=== PATIENT | female | born 1980 | race Caucasian/White ===

== ENCOUNTER 2016-05-29 05:04 | Emergency (ER) | payer BC, OTHER ==
[2016-05-29] MEDS ORDERED: NS 0.9% 1000 ML* 1,000 ML IV ONE (05:33)
[2016-05-29] MEDS ORDERED: Ondansetron INJ* 2 MG/ML VIAL IV ONE (05:33)
[2016-05-29] MEDS ORDERED: HYDROmorphone INJ* 1 MG/ML CARPUJECT SYRINGE IV ONE (05:33)
[2016-05-29 05:46] LABS: Hematocrit 48 % (35-47); Hemoglobin 15.8 g/dl (12.0-16.0); Mean Corpuscular HGB Conc 33 g/dl (31-36); Mean Corpuscular Hemoglobin 30 pg (27-31); Mean Corpuscular Volume 89 fL (80-97); Mean Platelet Volume 9 um3 (7.4-10.4); Red Blood Count 5.33 10^6/ul (4.0-5.4); Red Cell Distribution Width 14 % (10.5-15); White Blood Count 12.4 10^3/ul (3.5-10.8)
[2016-05-29 06:05] LABS: ALT 24 U/L (7-52); Albumin 4.3 g/dL (3.2-5.2); Alkaline Phosphatase 68 U/L (34-104); BUN/Creatinine Ratio 25.3 (8-20); Blood Urea Nitrogen 22 mg/dL (6-24); CO2 Carbon Dioxide 22 mmol/L (22-32); Chloride 105 mmol/L (101-111); EGFR African American 94.2 (>60); EGFR Non-African American 73.3 (>60); Globulin 2.6 g/dL (2-4); Glucose 116 mg/dL (70-100); Sodium 134 mmol/L (133-145); Total Protein 6.9 g/dL (6.4-8.9)
[2016-05-29 06:09] LABS: AST 23 U/L (13-39); Anion Gap 7 mmol/L (2-11); Potassium 4.7 mmol/L (3.5-5.0)
[2016-05-29] MEDS ORDERED: LORazepam INJ* 2 MG/ML 1 ML VIAL IV PUSH ONE (06:16)
--- NOTE | 2016-05-29 06:19 | ED ---
Dante Pearson Anna, scribed for Mary Lopez MD on 05/29/16 at 0536 . Abdominal Pain/Female - HPI Summary HPI Summary: Patient is a 35 y/o female coming to [facility] presenting with sudden onset of constant abdominal pain that began at 1:00 this morning. She describes the severity of the pain as 9/10. The pain is exacerbated by standing up straight. She saw large blood clots this morning. She reports a hx of painful menses and started her period last night. She took ibuprofen at 1:30 which has not alleviated the symptoms. Denies fever, chills. She reports that she has had pain with her period for the last six months. A0. - History of Current Complaint Chief Complaint: EDAbdPain Stated Complaint: ABD PAIN/BLEEDING Hx Obtained From: Patient Hx Last Menstrual Period: 05/28/16 Onset/Duration: Sudden Onset, Lasting Hours, Still Present Timing: Constant Severity Initially: Moderate Severity Currently: Moderate Pain Intensity: 9 Pain Scale Used: 0-10 Numeric Location: Suprapubic Radiates: No Aggravating Factor(s): Other: - Standing Allergies/Adverse Reactions: Allergies Allergy/AdvReac Type Severity Reaction Status Date / Time Ceftriaxone [From Rocephin] Allergy Anaphylatic Verified 05/29/16 05:43 Shock Ketoprofen Allergy Anaphylatic Verified 05/29/16 05:43 Shock BEES Allergy Severe Anaphylatic Uncoded 05/29/16 05:43 Shock red dye Allergy Severe Anaphylatic Uncoded 05/29/16 05:43 Shock PMH/Surg Hx/FS Hx/Imm Hx Endocrine/Hematology History: Denies: Hx Diabetes, Hx Thyroid Disease Cardiovascular History: Denies: Hx Congestive Heart Failure, Hx Hypertension Respiratory History: Denies: Hx Asthma, Hx Chronic Obstructive Pulmonary Disease (COPD) GI History: Denies: Hx Ulcer - Surgical History Surgery Procedure, Year, and Place: appendix; tubal ligation; tonsils Infectious Disease History: No Infectious Disease History: Denies: Hx Hepatitis, Hx Human Immunodeficiency Virus (HIV), History Other Infectious Disease, Traveled Outside the [place] in Last 30 Days - Family History Known Family History: Positive: Other - Hx hemorrhage mother; Hx hysterectomy for medical reasons mother - Social History Occupation: Employed Full-time Lives: With Family Alcohol Use: Rare Substance Use Type: Reports: None Smoking Status (MU): Light Every Day Tobacco Smoker Type: Cigarettes Amount Used/How Often: 1 pack per week Review of Systems Negative: Fever, Chills Eyes: Negative ENT: Negative Positive: Other - blood clots Respiratory: Negative Positive: Abdominal Pain Genitourinary: Negative Musculoskeletal: Negative Skin: Negative Neurological: Negative Psychological: Normal All Other Systems Reviewed And Are Negative: Yes Physical Exam Triage Information Reviewed: Yes Vital Signs On Initial Exam: Initial Vitals Temp Pulse Resp BP Pulse Ox 98.4 F 94 22 149/99 99 05/29/16 05:13 05/29/16 05:13 05/29/16 05:13 05/29/16 05:13 05/29/16 05:13 Vital Signs Reviewed: Yes Appearance: Positive: Well-Appearing, No Pain Distress Skin: Positive: Warm, Skin Color Reflects Adequate Perfusion, Dry Eyes: Positive: EOMI, GHULAM ENT: Positive: Pharynx normal, TMs normal Neck: Positive: Supple, Nontender Respiratory/Lung Sounds: Positive: Clear to Auscultation, Breath Sounds Present. Negative: Rales, Rhonchi, Wheezes Cardiovascular: Positive: RRR, Other - no gallops. Negative: Murmur, Rub Abdomen Description: Positive: Soft, Other: - suprapubic tenderness, no rebound. Negative: Distended, Guarding Bowel Sounds: Positive: Present Pelvic Exam: Positive: external exam normal, active bleeding, blood, tender adnexa, tender uterus - mild to mod amount of bleeding with left adnexal and suprapubic tenderenss Musculoskeletal: Positive: Strength/ROM Intact. Negative: Edema Left, Edema Right Neurological: Positive: Sensory/Motor Intact, Alert, Oriented to Person Place, Time, CN Intact II-III - II-XII Psychiatric: Positive: Affect/Mood Appropriate Diagnostics - Vital Signs Vital Signs Temp Pulse Resp BP Pulse Ox 05/29/16 05:13 98.4 F 94 22 149/99 99 - Laboratory Lab Results: Lab Results 05/29/16 05/29/16 05/29/16 Range/Units 05:27 05:27 05:27 WBC 12.4 H (3.5-10.8) 10^3/ul RBC 5.33 (4.0-5.4) 10^6/ul Hgb 15.8 (12.0-16.0) g/dl Hct 48 H (35-47) % MCV 89 (80-97) fL MCH 30 (27-31) pg MCHC 33 (31-36) g/dl RDW 14 (10.5-15) % Plt Count 258 (150-450) 10^3/ul MPV 9 (7.4-10.4) um3 Neut % (Auto) 71.5 (38-83) % Lymph % (Auto) 17.4 L (25-47) % [place] % (Auto) 6.0 (1-9) % Eos % (Auto) 3.6 (0-6) % Baso % (Auto) 1.5 (0-2) % Absolute Neuts (auto) 8.9 H (1.5-7.7) 10^3/ul Absolute Lymphs (auto) 2.1 (1.0-4.8) 10^3/ul Absolute Monos (auto) 0.7 (0-0.8) 10^3/ul Absolute Eos (auto) 0.4 (0-0.6) 10^3/ul Absolute Basos (auto) 0.2 (0-0.2) 10^3/ul Absolute Nucleated RBC 0.01 10^3/ul Nucleated RBC % 0 APTT 30.2 (26.0-36.3) seconds Sodium 134 (133-145) mmol/L Potassium 4.7 (3.5-5.0) mmol/L Chloride 105 (101-111) mmol/L Carbon Dioxide 22 (22-32) mmol/L Anion Gap 7 (2-11) mmol/L BUN 22 (6-24) mg/dL Creatinine 0.87 (0.51-0.95) mg/dL Est GFR ( Amer) 94.2 (>60) Est GFR (Non-Af Amer) 73.3 (>60) BUN/Creatinine Ratio 25.3 H (8-20) Glucose 116 H (70-100) mg/dL Calcium 9.0 (8.6-10.3) mg/dL Total Bilirubin 0.40 (0.2-1.0) mg/dL AST 23 (13-39) U/L ALT 24 (7-52) U/L Alkaline Phosphatase 68 (34-104) U/L Total Protein 6.9 (6.4-8.9) g/dL Albumin 4.3 (3.2-5.2) g/dL Globulin 2.6 (2-4) g/dL Albumin/Globulin Ratio 1.7 (1-3) Beta HCG, Quant < 0.60 mIU/mL Result Diagrams: 05/29/16 05:27 05/29/16 05:27 Lab Statement: Any lab studies that have been ordered have been reviewed, and results considered in the medical decision making process. Abdominal Pain Fem Course/Dx - Course Course Of Treatment: 35 yo female with painful periods over the last few months awakened at 1am with pain after period started on saturday. labs are essentially normal, pelvic exam benign except for mild bleeding. Pt will be signed out to Dr. Churchill while awaiting her pelvic ultrasound this am. - Diagnoses Provider Diagnoses: Vaginal bleeding Discharge - Discharge Plan Condition: Stable Disposition: OTHER Discharge Disposition Comment: dr. Churchill will be adding the disposition The documentation as recorded by the Dante valverde Anna accurately reflects the service I personally performed and the decisions made by , Mary Lopez MD.
[2016-05-29 07:47] LABS: Urine Bacteria 1+ (Absent); Urine Bilirubin Negative (Negative); Urine Glucose Negative (Negative); Urine Nitrite Negative (Negative)
--- NOTE | 2016-05-29 08:27 | RAD ---
Indication: Vaginal bleeding. Real-time sonography of the pelvis was performed with transabdominal technique. The uterus is enlarged measuring 11.0 x 5.9 x 2.3 cm with a large fibroid in the anterior body measuring 6.8 x 6.7 x 6.7 cm. Endometrial echo measures 8 mm. The right ovary measures 3.7 x 1.5 x 2.6 cm. The left ovary measures 3.6 x 2.8 x 2.7 cm. Doppler interrogation demonstrates flow in both ovaries. IMPRESSION: Large fibroid in the anterior body of the uterus measures 6.8 x 6.7 x 6.7 cm. Endometrial echoes appear normal.
[2016-05-29] MEDS ORDERED: oxyCODONE/Acetamin 5/325 MG* TAB PO ONE (10:08)
[2016-05-29] MEDS ORDERED: Sulfamethox/Trimethoprim DS 800/160* TAB PO ONE (10:10)
[2016-05-29 11:13] VITALS: BP 120/72
--- NOTE | 2016-05-29 15:25 | ED ---
Progress - Progress Note Progress Note: Signed out to me by Dr. Lopez @ 0700. Re-eval 30 minutes prior to DC, still in pain ,tolerating PO. No urinary sx. Fam hx/personal hx of dysmenorrhea Do not suspect acute surgical abdomen Plan for cover with abx 2 days until cultures back, analgesics Course/Dx - Course Course Of Treatment: 35 yo female with painful periods over the last few months awakened at 1am with pain after period started on saturday. labs are essentially normal, pelvic exam benign except for mild bleeding. Pt will be signed out to Dr. Churchill while awaiting her pelvic ultrasound this am. - Diagnoses Provider Diagnoses: Vaginal bleeding
== END 2016-05-29 11:14 | disposition home or self-care (01) ==
LOC: ED 05:04
DX: N93.9 Abnormal uterine and vaginal bleeding, unspecified (principal); F17.210 Nicotine dependence, cigarettes, uncomplicated; D25.9 Leiomyoma of uterus, unspecified
CPT/HCPCS: 36415; 76856; 80053; 81003; 81015; 84702; 85025; 85730; 87086; 96360; 96365; 96374; 99283; A9270-GY; J1170; J2060; J2405

== ENCOUNTER 2016-06-14 10:29 | Observation (INO) | payer BC ==
[~2016-06-14 10:29] MED LIST: Buffered Lidocaine 1% SYR 3ML* 3 ML/SYR SYRINGE INTRADERM ONE; Famotidine IV* 10 MG/ML 2 ML (20 mg) IV ONE; Gentamicin ADULT (*) 300 MG in NS 0.9% 100 ML* 100 ML IVPB ONE; Morphine INJ* 2 MG/ML 1 ML CARPUJECT IV PRN; PROCHLORPERAZINE INJ 5 MG/ML 2 ML VIAL IV PRN; Scopolamine PATCH Remove* 1 NOTE MISC PATCH OFF SCH; oxyCODONE/Acetamin 5/325 MG* TAB PO PRN
[2016-06-14] MEDS ORDERED: Scopolamine 1.5 mg* PATCH ONE (10:42)
[2016-06-14] MEDS ORDERED: Famotidine IV* 10 MG/ML 2 ML (20 mg) ONE (10:42)
[2016-06-14] MEDS ORDERED: Buffered Lidocaine 1% SYR 3ML* 3 ML/SYR SYRINGE ONE (10:42)
[2016-06-14] MEDS ORDERED: Clindamycin 900 MG IVPREMIX(* 900 MG/50 ML SDV IV ONE (10:42)
[2016-06-14] MEDS ORDERED: Scopolamine 1.5 mg* PATCH TRANSDERM SCH (11:00)
[2016-06-14] MEDS ORDERED: fentaNYL* 50 MCG/ML 5 ML VIAL (250 MCG VIAL) ONE (11:05)
[2016-06-14] MEDS ORDERED: KETAMINE HCL* 50 MG/ML 10 ML VIAL ONE (11:05)
[2016-06-14] MEDS ORDERED: Midazolam* 1 MG/ML 5 ML VIAL (5 MG) ONE (11:05)
[2016-06-14] MEDS ORDERED: Bupivacaine 0.5% W/EPI SDV* 30 ML VIAL ONE (12:09)
[2016-06-14] MEDS ORDERED: Glycopyrrolate IV* 0.2 MG/ML 1 ML VIAL ONE (13:03)
[2016-06-14] MEDS ORDERED: Ondansetron INJ* 2 MG/ML VIAL ONE (13:03)
[2016-06-14] MEDS ORDERED: Propofol* 10 MG/ML 20 ML BTL IV PUSH ONE ×2 (13:03→15:29)
[2016-06-14] MEDS ORDERED: PROCHLORPERAZINE INJ 5 MG/ML 2 ML VIAL ONE (13:03)
[2016-06-14] MEDS ORDERED: Dexamethasone IV* 4 MG/ML 1 ML (4 MG) ONE (13:03)
[2016-06-14] MEDS ORDERED: Ketorolac INJ* 30 MG/ML 1 ML VIAL ONE (13:03)
[2016-06-14] MEDS ORDERED: Neostigmine Methylsulfate* 2 MG/2 ML SYRINGE ONE (13:03)
[2016-06-14] MEDS ORDERED: Lidocaine 2% PF* 10 ML AMP ONE (13:04)
[2016-06-14] MEDS ORDERED: Morphine INJ* 10 MG/ML 1 ML CARPUJECT ONE (13:26)
[2016-06-14] MEDS ORDERED: fentaNYL* 50 MCG/ML 2 ML VIAL (100 MCG VIAL) ONE ×2 (16:00→16:26)
[2016-06-14] MEDS ORDERED: oxyCODONE/Acetamin 5/325 MG* TAB PO PRN (16:01)
[2016-06-14] MEDS: fentaNYL* 50 MCG/ML 2 ML VIAL (100 MCG VIAL) IV PRN ×8 (16:01→16:53)
[2016-06-14] MEDS ORDERED: Morphine PCA ADULT* 5 MG/ML 30 ML ONE (16:35)
[2016-06-14] MEDS ORDERED: Metoclopramide IV* 5 MG/ML 2 ML VIAL IV PRN (18:16)
[2016-06-14] MEDS ORDERED: Naloxone* 0.4 MG/ML 1 ML VIAL IV PUSH PRN (18:16)
[2016-06-14] MEDS ORDERED: Ibuprofen TAB* 600 MG PO PRN (18:20)
[2016-06-14] MEDS ORDERED: Morphine PCA* 150 MG in PREMIX PCA SCH (19:00)
[2016-06-15] MEDS: oxyCODONE/Acetamin 5/325 MG* TAB PO PRN ×2 (05:20→09:37)
[2016-06-15 07:04] LABS: Hematocrit 37 % (35-47); Hemoglobin 12.1 g/dl (12.0-16.0); Mean Corpuscular HGB Conc 33 g/dl (31-36); Mean Corpuscular Hemoglobin 29 pg (27-31); Mean Corpuscular Volume 89 fL (80-97); Mean Platelet Volume 8 um3 (7.4-10.4); Red Blood Count 4.19 10^6/ul (4.0-5.4); Red Cell Distribution Width 14 % (10.5-15); White Blood Count 21.6 10^3/ul (3.5-10.8)
[2016-06-15 07:09] LABS: Add Diff/Slide Review? Slide Review Added; Comments Flag Yes
[2016-06-15] MEDS ORDERED: Naloxone* 0.4 MG/ML 1 ML VIAL IV PUSH PRN (07:46)
[2016-06-15] MEDS ORDERED: NS 0.9% 1000 ML* 1,000 ML IVPB SCH (07:46)
[2016-06-15 07:57] VITALS: BP 95/67
[2016-06-15] MEDS ORDERED: Morphine PCA* 150 MG in PREMIX PCA SCH (08:00)
--- NOTE | 2016-06-15 22:32 | OP ---
DATE OF OPERATION: 06/14/16 - ROOM #340 DATE OF : 76 SURGEON: Agustín Lemons MD CNS: Dr. Perez. ANESTHESIOLOGIST: Dillon Lofton MD ANESTHESIA: General PRE-OP DIAGNOSES: Intramural fibroid, enlarged uterus, severe dysmenorrhea, and pelvic pain and pressure. POST-OP DIAGNOSES: Intramural fibroid, enlarged uterus, severe dysmenorrhea, and pelvic pain and pressure. OPERATIVE PROCEDURE: Laparoscopic supracervical hysterectomy. ESTIMATED BLOOD LOSS: Less than 100 cc. URINE OUTPUT: About 300 cc of clear urine. FLUIDS: She received 3 L of IV crystalloid fluid. SPECIMEN SENT TO PATHOLOGY: Uterus which was marcellated and fibroid. FINDINGS: Laparoscopically, the patient was noted to have an enlarged uterus with an enlarged single intramural myoma. The fallopian tubes bilaterally and ovaries bilaterally were within normal limits. There was a normal bowel, normal bladder. There were no complications during this procedure. DESCRIPTION OF PROCEDURE: The patient was taken to the operating room where she was identified. She was placed on the operating table where a general anesthetic with endotracheal intubation was obtained without difficulty. She was then placed in the dorsal lithotomy position, prepped and draped in the normal sterile fashion. Attention was then brought on to the patient's perineum where the bladder was catheterized with a Raza catheter and Raza catheter was left into place. A side- view speculum was then inserted into the patient's vagina. The cervix was identified, grasped with a single tooth tenaculum. The uterus was then sounded to about 12 cm in anteverted position after which a [place] uterine manipulator was introduced through the cervix. The balloon and the uterine manipulator was then inflated with 4 cc of normal saline. The single tooth tenaculum was then removed as well as side view speculum. Attention was then brought on the patient's abdomen where a 1 cm infraumbilical skin incision was made with a knife, carried through to the under-lying layer of fascia. The fascia was then grasped with Nona clamps, brought up to the incision, incised with a knife. Entry through the peritoneum and abdominal cavity was then confirmed using a Brittany clamp. The Nona clamps were then replaced with 0 Polysorb sutures. Through this incision, a 10 mm blunt trocar was introduced. The balloon and the trocar were then inflated with 20 cc of air. The trocar was then attached with 0 Polysorb sutures. The patient's abdomen was then insufflated with CO2 gas. A 10 mm scope was introduced through this trocar and the patient was then placed in a slight Trendelenburg position. Two additional trocars were introduced at the right and left upper quadrant of the patient's abdomen under direct visualization and another trocar was introduced 4 cm above the symphysis pubis and in midline. A survey of the patient's anatomy laparoscopically revealed findings as noted above. At this point, we then proceeded with hysterectomy. The round ligaments were then grasped bilaterally. They were grasped with a LigaSure, coagulated, and transected. A window was then made in the anterior leaf of the broad ligament. This was transected with LigaSure with a combination of fulguration and sharp dissection and the bladder was then mobilized away from the lower uterine segment. The utero-ovarian ligament was grasped bilaterally with LigaSure, fulgurated, and transected. The same was done with the fallopian tube, was grasped with LigaSure, fulgurated, and transected. The posterior leaf of the broad ligament was then dissected bluntly. The uterine arteries were identified bilaterally. They were grasped with LigaSure, coagulated, triply clipped, and then transected. Once the uterine arteries were ligated, blanching of the uterus was noted confirming the remove of the blood supply to the uterus. At this point, a Supra Loop was introduced through the suprapubic incision. It was placed around the uterus, around the cervix at the uterocervical junction. The Supra Loop was then seen to be placed tightly against the cervix, the bladder, the bowel, adnexa, and all of the tissues were away from the Supra Loop. At this point, the patient was then placed in a deep Trendelenburg position. The Supra Loop setting was 110 pure cut. We proceeded to amputate with cautery the uterus from the cervix. Once the uterus was amputated, it was mobilized away from the pelvis. The cervix was noted to be hemostatic and on inspection, there was no bleeding. At this point, Endobag was introduced through the umbilical incision. The umbilical incision to fascia was extended inferiorly through a 4 cm incision as well as the skin incision. Through the umbilical incision, an Endobag was introduced. The uterus was then placed in the Endobag. The Endobag was then brought up through the incision in the usual manner. A guard was introduced at the incision against the bag. The uterus was then grasped with a clamp and it was morcellated in succession. The morcellated specimen was sent to pathology. The morcellation occurred within the bag. The bag was then removed from the patient's abdomen. The bag was then filled with normal saline and it was noted to be intact. At this point, another survey with laparoscope revealed hemostasis of all the surgical pedicles. The bowel was within normal limits. There was no bleeding. The pelvis was then irrigated with normal saline. The irrigation fluid was then suctioned. All the instruments were then removed from the patient's abdomen. The gas was allowed to release itself from the patient's abdomen through the incisions. The umbilical incision in the fascia was closed with 0 Polysorb suture in a running fashion and the skin incision on remaining laparoscopic incisions including the umbilicus was closed with 4-0 Vicryl and a subcuticular stitch. The instruments were also removed from the patient's vagina. The [place] manipulator was removed from the uterus prior to using the Supra Loop. Raza catheter was left in place. Sponge, lap, needle counts were correct x2. The patient tolerated the procedure well. The sponge, lap, and needle counts again were correct x2. She was then transferred to recovery room area in stable condition. CC: Steve Perez MD, [facility] * [id number]/CPS #: [id number] MTDD
--- NOTE | 2016-08-16 17:42 | DS ---
DISCHARGE SUMMARY: DATE OF ADMISSION: 06/14/16 DATE OF DISCHARGE: 06/15/16 ADMISSION DIAGNOSIS: Uterine fibroids. SECONDARY DIAGNOSES: Severe dysmenorrhea and pelvic pain and pressure. PROCEDURE: On 06/14/16, she underwent the procedure laparoscopic supracervical hysterectomy. Finding on pathology from the procedure was 314 g uterus with fragments of benign leiomyoma. DISCHARGE DISPOSITION: The patient was stable. On the date of discharge, the patient's vital signs remained stable. She was afebrile. She was tolerating a regular diet. She was ambulating and voiding without difficulty and taking p.o. medications. Her hemoglobin and hematocrit on date of discharge was 12.1/37. She was given discharge instructions to follow up at my office 1 week after discharge. Please refer to the patient's medical record for a complete description of the discharge medications during her hospital stay and her laboratory values. [id number]/CPS #: [id number] MTDD
== END 2016-06-15 10:25 | disposition home or self-care (01) ==
LOC: OR 10:29 → SSU 17:51
PROVIDERS: ADMIT Obstetrics & Gynecology; ATTEND Obstetrics & Gynecology
PROC: 0UT94ZZ Resection of Uterus, Percutaneous Endoscopic Approach (ICD-10-PCS; principal; 2016-06-14 12:15)
DX: N94.5 Secondary dysmenorrhea (principal); D25.1 Intramural leiomyoma of uterus; N85.2 Hypertrophy of uterus; Z88.1 Allergy status to other antibiotic agents; Z88.8 Allergy status to other drugs, medicaments and biological substances; F17.210 Nicotine dependence, cigarettes, uncomplicated
CPT/HCPCS: 36415; 85025; 88307; 94760; A9270-GY; G0378; J0780; J1100; J1580; J1885; J2001; J2250; J2270; J2405; J2704; J3010

== ENCOUNTER 2017-02-21 10:05 | Day surgery (SDC) | payer BC, OTHER ==
[2017-02-21 11:26] LABS: Hematocrit 45 % (35-47); Hemoglobin 15.1 g/dl (12.0-16.0); Mean Corpuscular HGB Conc 34 g/dl (31-36); Mean Corpuscular Hemoglobin 31 pg (27-31); Mean Corpuscular Volume 90 fL (80-97); Mean Platelet Volume 8 um3 (7.4-10.4); Red Blood Count 4.97 10^6/ul (4.0-5.4); Red Cell Distribution Width 14 % (10.5-15)
[2017-02-21 11:43] LABS: Albumin 4.5 g/dL (3.2-5.2); BUN/Creatinine Ratio 29.6 (8-20); Calcium 9.2 mg/dL (8.6-10.3); EGFR African American 118.5 (>60); EGFR Non-African American 92.1 (>60); Globulin 2.5 g/dL (2-4); Potassium 4.1 mmol/L (3.5-5.0); Total Bilirubin 0.5 mg/dL (0.2-1.0)
[2017-02-21] MEDS ORDERED: HYDROcodone/ACETAMIN 5-325 MG* 1 TAB PO ONE (13:44)
[2017-02-21] MEDS ORDERED: Morphine INJ* 4 MG/ML 1 ML CARPUJECT IV ONE (13:47)
[2017-02-21] MEDS ORDERED: Ondansetron INJ* 2 MG/ML VIAL ONE ×2 (13:51→18:25)
--- NOTE | 2017-02-21 14:00 | ED ---
Abdominal Pain/Female - HPI Summary HPI Summary: Patient is a 36yo F with a history of abdominal surgeries, most recently in Jun with a hysterectomy. She states upon standing yesterday she felt a "pop" and felt an immediate pain just to the right lateral side of her umbilicus. Endorses N/V x 2 after drinking coffee this morning. Was able to eat last evening, but felt nauseous following. Denies BM or passing gas. She feels full and distended. Denies fevers, sweats or chills. Pain is 8/10, constant and discretely located. Denies urinary symptoms. Denies diarrhea or constipation. Last BM 2 days ago, but that is normal for her. Denies passing gas. - History of Current Complaint Chief Complaint: EDAbdPain Stated Complaint: ABD PAIN Time Seen by Provider: 02/21/17 13:09 Hx Obtained From: Patient Hx Last Menstrual Period: 05/28/16 ?: No Onset/Duration: Sudden Onset Timing: Constant Severity Initially: Moderate Severity Currently: Moderate Pain Intensity: 9 Pain Scale Used: 0-10 Numeric Location: Umbilical Radiates: No Character: Sharp Aggravating Factor(s): Nothing Alleviating Factor(s): Vomiting Associated Signs and Symptoms: Positive: Nausea, Vomiting - Risk Factors Ectopic Risk Factor: Maternal Age ^ 30 Ovarian Torsion Risk Factor: Reproductive Age Allergies/Adverse Reactions: Allergies Allergy/AdvReac Type Severity Reaction Status Date / Time Bee Venom Allergy Anaphylatic Verified 06/14/16 10:47 Shock Ceftriaxone [From Rocephin] Allergy Anaphylatic Verified 06/14/16 10:47 Shock Ketoprofen Allergy Anaphylatic Verified 06/14/16 10:47 Shock Red Dye Allergy Anaphylatic Verified 06/14/16 10:47 Shock PMH/Surg Hx/FS Hx/Imm Hx Previously Healthy: Yes Endocrine/Hematology History: Denies: Hx Diabetes, Hx Thyroid Disease Cardiovascular History: Denies: Hx Congestive Heart Failure, Hx Hypertension Respiratory History: Denies: Hx Asthma, Hx Chronic Obstructive Pulmonary Disease (COPD) GI History: Denies: Hx Ulcer History: Denies: Hx Renal Disease Sensory History: Denies: Hx Contacts or Glasses, Hx Hearing Aid Opthamlomology History: Denies: Hx Contacts or Glasses - Surgical History Surgery Procedure, Year, and Place: appendix; tubal ligation; tonsils, [facility] Hx Anesthesia Reactions: No - Immunization History Hx Pertussis Vaccination: No Immunizations Up to Date: Unable to Obtain/Confirm Infectious Disease History: No Infectious Disease History: Denies: Hx Hepatitis, Hx Human Immunodeficiency Virus (HIV), History Other Infectious Disease, Traveled Outside the [place] in Last 30 Days - Family History Known Family History: Positive: Other - Hx hemorrhage mother; Hx hysterectomy for medical reasons mother - Social History Occupation: Employed Full-time Lives: With Family Alcohol Use: Rare Alcohol Amount: SOCIALLY Hx Substance Use: No Substance Use Type: Reports: None Hx Tobacco Use: Yes Smoking Status (MU): Light Every Day Tobacco Smoker Type: Cigarettes Amount Used/How Often: 1 pack per week Review of Systems Constitutional: Negative Negative: Fever, Chills, Fatigue, Skin Diaphoresis Eyes: Negative Cardiovascular: Negative Respiratory: Negative Negative: Shortness Of Breath, Cough Positive: Abdominal Pain, Vomiting, Nausea. Negative: Diarrhea Genitourinary: Negative Positive: no symptoms reported, see HPI Musculoskeletal: Negative Neurological: Negative All Other Systems Reviewed And Are Negative: Yes Physical Exam Triage Information Reviewed: Yes Vital Signs On Initial Exam: Initial Vitals Temp Pulse Resp BP Pulse Ox 96.6 F 78 22 111/87 98 02/21/17 10:59 02/21/17 10:59 02/21/17 10:59 02/21/17 10:59 02/21/17 10:59 Vital Signs Reviewed: Yes Appearance: Positive: Well-Appearing, Well-Nourished Skin: Positive: Warm, Skin Color Reflects Adequate Perfusion Head/Face: Positive: Normal Head/Face Inspection Eyes: Positive: EOMI, GHULAM, Conjunctiva Clear Neck: Positive: Supple, No Lymphadenopathy Respiratory/Lung Sounds: Positive: Clear to Auscultation, Breath Sounds Present Cardiovascular: Positive: Normal, RRR, Pulses are Symmetrical in both Upper and Lower Extremities Abdomen Description: Positive: No Organomegaly, Soft, Distended, Other: - tenderness to palpation just right of the umbilicus. Negative: CVA Tenderness ( R), CVA Tenderness (L), Hepatomegaly, McBurney's Point Tenderness, Peritoneal Signs, Pulsatile Mass Bowel Sounds: Positive: Present Musculoskeletal: Positive: Normal, Strength/ROM Intact Neurological: Positive: Sensory/Motor Intact, Alert, Oriented to Person Place, Time, Speech Normal Psychiatric: Positive: Normal AVPU Assessment: Alert Diagnostics - Vital Signs Vital Signs Temp Pulse Resp BP Pulse Ox 10/12/17 13:08 98.3 F 70 18 118/80 100 02/21/17 10:59 96.6 F 78 22 111/87 98 - Laboratory Lab Results: Lab Results 02/21/17 02/21/17 02/21/17 Range/Units 11:15 11:15 11:15 WBC 13.0 H (3.5-10.8) 10^3/ul RBC 4.97 (4.0-5.4) 10^6/ul Hgb 15.1 (12.0-16.0) g/dl Hct 45 (35-47) % MCV 90 (80-97) fL MCH 31 (27-31) pg MCHC 34 (31-36) g/dl RDW 14 (10.5-15) % Plt Count 249 (150-450) 10^3/ul MPV 8 (7.4-10.4) um3 Neut % (Auto) 63.5 (38-83) % Lymph % (Auto) 26.5 (25-47) % [place] % (Auto) 5.2 (1-9) % Eos % (Auto) 2.9 (0-6) % Baso % (Auto) 1.9 (0-2) % Absolute Neuts (auto) 8.3 H (1.5-7.7) 10^3/ul Absolute Lymphs (auto) 3.4 (1.0-4.8) 10^3/ul Absolute Monos (auto) 0.7 (0-0.8) 10^3/ul Absolute Eos (auto) 0.4 (0-0.6) 10^3/ul Absolute Basos (auto) 0.2 (0-0.2) 10^3/ul Absolute Nucleated RBC 0.01 10^3/ul Nucleated RBC % 0 INR (Anticoag Therapy) 0.82 L (0.89-1.11) Sodium 134 (133-145) mmol/L Potassium 4.1 (3.5-5.0) mmol/L Chloride 102 (101-111) mmol/L Carbon Dioxide 25 (22-32) mmol/L Anion Gap 7 (2-11) mmol/L BUN 21 (6-24) mg/dL Creatinine 0.71 (0.51-0.95) mg/dL Est GFR ( Amer) 118.5 (>60) Est GFR (Non-Af Amer) 92.1 (>60) BUN/Creatinine Ratio 29.6 H (8-20) Glucose 97 (70-100) mg/dL Lactic Acid (0.5-2.0) mmol/L Calcium 9.2 (8.6-10.3) mg/dL Total Bilirubin 0.50 (0.2-1.0) mg/dL AST 23 (13-39) U/L ALT 38 (7-52) U/L Alkaline Phosphatase 56 (34-104) U/L Total Protein 7.0 (6.4-8.9) g/dL Albumin 4.5 (3.2-5.2) g/dL Globulin 2.5 (2-4) g/dL Albumin/Globulin Ratio 1.8 (1-3) 02/21/17 Range/Units 11:15 WBC (3.5-10.8) 10^3/ul RBC (4.0-5.4) 10^6/ul Hgb (12.0-16.0) g/dl Hct (35-47) % MCV (80-97) fL MCH (27-31) pg MCHC (31-36) g/dl RDW (10.5-15) % Plt Count (150-450) 10^3/ul MPV (7.4-10.4) um3 Neut % (Auto) (38-83) % Lymph % (Auto) (25-47) % [place] % (Auto) (1-9) % Eos % (Auto) (0-6) % Baso % (Auto) (0-2) % Absolute Neuts (auto) (1.5-7.7) 10^3/ul Absolute Lymphs (auto) (1.0-4.8) 10^3/ul Absolute Monos (auto) (0-0.8) 10^3/ul Absolute Eos (auto) (0-0.6) 10^3/ul Absolute Basos (auto) (0-0.2) 10^3/ul Absolute Nucleated RBC 10^3/ul Nucleated RBC % INR (Anticoag Therapy) (0.89-1.11) Sodium (133-145) mmol/L Potassium (3.5-5.0) mmol/L Chloride (101-111) mmol/L Carbon Dioxide (22-32) mmol/L Anion Gap (2-11) mmol/L BUN (6-24) mg/dL Creatinine (0.51-0.95) mg/dL Est GFR ( Amer) (>60) Est GFR (Non-Af Amer) (>60) BUN/Creatinine Ratio (8-20) Glucose (70-100) mg/dL Lactic Acid 1.3 (0.5-2.0) mmol/L Calcium (8.6-10.3) mg/dL Total Bilirubin (0.2-1.0) mg/dL AST (13-39) U/L ALT (7-52) U/L Alkaline Phosphatase (34-104) U/L Total Protein (6.4-8.9) g/dL Albumin (3.2-5.2) g/dL Globulin (2-4) g/dL Albumin/Globulin Ratio (1-3) Result Diagrams: 02/21/17 11:15 02/21/17 11:15 Lab Statement: Any lab studies that have been ordered have been reviewed, and results considered in the medical decision making process. Abdominal Pain Fem Course/Dx - Course Course Of Treatment: Patient presents to the ED for evaluation of sharp, acute onset abdominal pain located just right of the umbilicus. Labs WNl except for slightly elevated WBC. Pain is 8/10. She is given morphine which reduced her pain from 8/10 to 6/10. Continues to be constant. N/V in the waiting area, which has resolved. Appears to be umbilical hernia which is palpable. Unable to reduce the umbilcal hernia at bedside. NO ecchymosis or discoloration noted over the skin to suggest incarceration. Called Dr. Pham who recommended CT. Ct shows : IMPRESSION: 1. HEPATOMEGALY WITH FATTY INFILTRATION OF LIVER. 2. NONOBSTRUCTING LEFT RENAL CALYCEAL STONE. 3. DIASTASIS RECTI WITH A FAT- CONTAINING UMBILICAL HERNIA. Patient given 4mg more of morphine and 4mg zofran. Dr. Pham to see the patient at 3:45pm. Patient agrees to go to surgery. She is discharged from ED at 4:40pm. Stable and VS stable. - Diagnoses Provider Diagnoses: Umbilical hernia Discharge - Discharge Plan Condition: Stable Disposition: ADMITTED TO [facility]
[2017-02-21] MEDS ORDERED: Ondansetron INJ* 2 MG/ML VIAL IV ONE (14:03)
--- NOTE | 2017-02-21 14:31 | RAD ---
CLINICAL HISTORY: Abdominal pain, possible incarcerated hernia COMPARISON: June 27, 2016 TECHNIQUE: Multiple contiguous axial CT scans were obtained of the abdomen and pelvis, without intravenous contrast enhancement. Coronal and sagittal multiplanar reformations are submitted for review. Oral contrast was not administered. FINDINGS: The study is limited by the lack of intravenous contrast. This limits evaluation of the solid organs and vasculature. LUNG BASES: The lung bases are clear. LIVER: The liver is diffusely low in attenuation compared to the spleen. There are no focal hepatic parenchymal masses. The liver measures 21 cm in long axis. BILE DUCTS: There is no intrahepatic or extrahepatic biliary dilatation. GALLBLADDER: The gallbladder is normal, without pericholecystic inflammatory change. PANCREAS: The pancreas is normal, without mass or ductal dilatation. SPLEEN: Normal in size and appearance. UPPER GI TRACT: Evaluation of the gastrointestinal tract is limited by incomplete gastric distention. The upper GI tract is unremarkable. SMALL BOWEL AND MESENTERY: The small bowel is normal in contour, course, and caliber. There is no obstruction or dilatation. COLON: The colon is normal in contour, course, caliber. There is no pericolonic inflammatory change. The appendix is not clearly visualized. There is no appreciable inflammatory change in the right upper quadrant ADRENALS: Normal bilaterally. KIDNEYS: There is a 0.9 cm nonobstructing left renal calyceal stone. BLADDER: The bladder is smooth in contour. PELVIC ORGANS: The uterus and adnexa are grossly normal for technique. AORTA: The aorta is normal. IVC: Unremarkable LYMPH NODES: There is no lymphadenopathy by size criteria. ABDOMINAL WALL: There is diastasis rectus with a broad-based fat-containing umbilical hernia. The hernia sac has a wide neck. BONES AND SOFT TISSUES: Degenerative changes are noted most pronounced at L5-S1 OTHER: None IMPRESSION: 1. HEPATOMEGALY WITH FATTY INFILTRATION OF LIVER. 2. NONOBSTRUCTING LEFT RENAL CALYCEAL STONE. 3. DIASTASIS RECTI WITH A FAT-CONTAINING UMBILICAL HERNIA
[2017-02-21] MEDS ORDERED: Morphine INJ* 2 MG/ML 1 ML CARPUJECT IV ONE (15:52)
[2017-02-21] MEDS ORDERED: fentaNYL* 50 MCG/ML 2 ML VIAL (100 MCG VIAL) ONE ×2 (16:34→17:45)
[2017-02-21] MEDS ORDERED: KETAMINE HCL* 50 MG/ML 10 ML VIAL ONE (16:34)
[2017-02-21] MEDS ORDERED: Clindamycin 900 MG IVPREMIX(* 900 MG/50 ML SDV IV ONE (16:35)
[2017-02-21] MEDS ORDERED: Midazolam* 1 MG/ML 5 ML VIAL (5 MG) ONE (16:35)
[2017-02-21] MEDS ORDERED: oxyCODONE/Acetamin 5/325 MG* TAB PO PRN (16:43)
[2017-02-21] MEDS ORDERED: Scopolamine 1.5 mg* PATCH TRANSDERM PRN (16:43)
[2017-02-21] MEDS ORDERED: PROCHLORPERAZINE INJ 5 MG/ML 2 ML VIAL IV PRN (16:43)
[2017-02-21] MEDS ORDERED: Morphine INJ* 2 MG/ML 1 ML CARPUJECT IV PRN (16:43)
[2017-02-21] MEDS ORDERED: fentaNYL* 50 MCG/ML 2 ML VIAL (100 MCG VIAL) IV PRN (16:43)
[2017-02-21] MEDS ORDERED: Lidocaine 1% INJ* 10 MG/ML 30 ML SDV ONE (16:50)
[2017-02-21] MEDS ORDERED: Bupivacaine 0.5% SDV PF* 30 ML VIAL ONE (16:50)
[2017-02-21] MEDS ORDERED: Midazolam* 1 MG/ML 2 ML VIAL (2 MG) ONE (17:01)
[2017-02-21] MEDS ORDERED: Phenylephrine IV* 40 MCG/ML 10 ML SYRINGE ONE (17:04)
--- NOTE | 2017-02-21 17:06 | HP ---
DATE OF ADMISSION: 02/21/2017. This patient was seen in the [facility] Emergency Department. ATTENDING SURGEON: Dr. Dillon Pham* (dictated by Petty Garvin, LIN). CHIEF COMPLAINT: Severe periumbilical abdominal pain. HISTORY OF PRESENT ILLNESS: The patient is a 36-year-old female who was in her usual state of good health until last evening when she was at her daughter's volleyball game and stood up to cheer and felt a "popping" sensation around her belly button and has been in pain ever since. She proceeded to the emergency room and underwent CAT scan of the abdomen and pelvis which revealed diastasis recti with a fat containing umbilical hernia. She denies any fever or chills. She denies dysuria. Her last bowel movement was two days ago, which she says is very typical for her. The last time she had something by mouth was last evening. PAST MEDICAL HISTORY: Generally healthy. Recently she started on an antidepressant. PAST SURGICAL HISTORY: Laparoscopic hysterectomy June [address] Lemons for severe dysmenorrhea and fibroids, she had a postoperative seroma requiring drainage; appendectomy 2006; tubal ligation 2003; and tonsillectomy remotely. MEDICATIONS: 1. Lexapro, dosage unknown, she takes that daily. 2. Ibuprofen occasionally. ALLERGIES: CEFTRIAXONE, KETOPROFEN, THE COATING ON ADVIL TABLETS, BEE VENOM, RED DYE. FAMILY HISTORY: No known anesthesia complications, bleeding tendencies or clotting disorders. 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 She drinks alcohol socially and denies the use of other substances. REVIEW OF SYSTEMS: Constitutional: Denies fever, chills, fatigue, or change in weight. Respiratory: Denies cough or dyspnea. She is a light everyday smoker. Cardiovascular: Denies anginal chest pain or palpitations. Gastrointestinal: Denies nausea or vomiting. Denies diarrhea or constipation. Denies blood per rectum. Genitourinary: Denies dysuria. Musculoskeletal: Denies chronic back or joint pain. Neurologic: Denies blurred vision or history of seizures. General: Denies previous anesthesia complications, bleeding tendencies. Has never received a blood transfusion and denies any history of deep vein thrombosis or pulmonary embolism. PHYSICAL EXAMINATION GENERAL: The patient is a 36-year-old female, well-developed, well-nourished, in no acute distress. VITAL SIGNS: Height 64 inches, weight 220 pounds, body mass index 37.8. Temperature 98.3. Vital signs per nursing. O2 saturation 100 percent. SKIN: Warm, dry, intact. HEENT: Benign. NECK: Supple. No cervical lymphadenopathy. BACK: No CVA tenderness. LUNGS: Breath sounds bilaterally clear and equal. HEART: Regular rate and rhythm. No murmurs or rubs appreciated. ABDOMEN: Obese, soft, active bowel sounds, nondistended, exquisitely tender to the right of the umbilicus where there is a palpable bulge when she is standing. EXTREMITIES: Full range of motion. PELVIC: Exam deferred. RECTAL: Exam deferred. NEUROLOGIC: Alert and oriented times three. Steady gait. LABORATORY DATA: White blood cell count 13. Hemoglobin and hematocrit 15/45. Platelets 249,000. CAT of the abdomen and pelvis: Diastasis recti with fat containing umbilical hernia. IMPRESSION: Painful umbilical hernia. PLAN: Per Dr. Pham after discussion with the patient of the risks, benefits and alternatives. The patient will go to the OR this evening for open repair of umbilical hernia with mesh. The patient has had a chance to ask questions and is satisfied with the answers given to her questions. She will sign surgical consent prior to the procedure. TIME SPENT: 60 minutes with over 50 percent in gkvs-su-lhoe history taking and coordination of care. MAURICE GARVIN NP [id number]/[facility] #: [id number] LEEANN
[2017-02-21] MEDS ORDERED: Ketorolac INJ* 30 MG/ML 1 ML VIAL ONE (18:25)
[2017-02-21] MEDS ORDERED: Lidocaine 2% PF * 5 ML VIAL ONE (18:25)
[2017-02-21] MEDS ORDERED: Propofol* 10 MG/ML 20 ML BTL IV PUSH ONE (18:25)
[2017-02-21] MEDS ORDERED: PROCHLORPERAZINE INJ 5 MG/ML 2 ML VIAL ONE (18:25)
[2017-02-21 20:15] VITALS: BP 117/79
--- NOTE | 2017-02-22 03:07 | OP ---
CC: HELGA Jordan * DATE OF OPERATION: 02/21/17 - [facility] DATE OF : 76 SURGEON: Dillon Pham MD SITE SPECIALIST: Petty Garvin NP ANESTHESIOLOGIST: Dr. Lofton. ANESTHESIA: LMAC anesthesia. PRE-OP DIAGNOSIS: Umbilical hernia. POST-OP DIAGNOSIS: Umbilical hernia. OPERATIVE PROCEDURE: Open repair of umbilical hernia with mesh. DESCRIPTION OF PROCEDURE: The patient was supine on the operative table. After adequate intravenous sedation, compression stockings, Gage Hugger warmer and intravenous antibiotics, the abdomen was prepped with antiseptic and draped in a sterile fashion. Local infiltrative anesthesia was administered. Curvilinear incision was created in the supra-umbilical fold. Dissection was carried down to the umbilical hernia. There was also a diastasis recti at that site. The umbilical hernia contained omentum, it was may be 3 cm across. The diastasis was may be a centimeter below and may be 2 cm above the hernia defect. The hernia defect was opened and the submuscular plane was developed and an 8 cm underlay patch was put into place. The rectus muscle was brought together above and below the defect and sutured at the 12 o'clock and 6 o'clock position of the patch and the patch was then parachuted in and tied up underneath and sutured around the circumference with additional interrupted sutures of full thickness #1 Vicryl. The rectus was then reapproximated overlying the mesh and attached to the mesh and the umbilical skin was tacked back down with 3-0 Vicryl which was also used to tack down the adipose and then the skin was closed with 5-0 Vicryl followed by Steri-Strips and gauze dressing. She tolerated the procedure well, was awakened and brought to recovery in good condition. No complications. No drains. No pathologic specimens. Sponge and instrument counts correct. Estimated blood loss 30 to 50 mL. [id number]/[facility] #: [id number] [facility] CENTER[facility]rake
[2017-02-24] MEDS ORDERED: Scopolomine PATCH Remove* 1 NOTE MISC PATCH OFF ONE (16:44)
== END 2017-02-21 16:37 | disposition home or self-care (01) ==
LOC: ED 10:05 → OR 16:37
PROVIDERS: ATTEND Surgery
DX: K42.9 Umbilical hernia without obstruction or gangrene (principal); M62.08 Separation of muscle (nontraumatic), other site; Z88.6 Allergy status to analgesic agent; Z88.1 Allergy status to other antibiotic agents; F17.210 Nicotine dependence, cigarettes, uncomplicated
CPT/HCPCS: 36415; 74176; 80053; 83605; 85025; 85610; 96374; 96375; 99284; C1781; J0780; J1885; J2001; J2250; J2270; J2405; J2704; J3010

== ENCOUNTER 2017-09-25 07:30 | Inpatient (IN) | payer BC, OTHER ==
[~2017-09-25 07:30] MED LIST changes: +Buffered Lidocaine 0.9% SYRIN* 5 ML/SYR SYRINGE INTRADERM ONE; -Buffered Lidocaine 1% SYR 3ML* 3 ML/SYR SYRINGE INTRADERM ONE; -Famotidine IV* 10 MG/ML 2 ML (20 mg) IV ONE; -Gentamicin ADULT (*) 300 MG in NS 0.9% 100 ML* 100 ML IVPB ONE; -Morphine INJ* 2 MG/ML 1 ML CARPUJECT IV PRN; -PROCHLORPERAZINE INJ 5 MG/ML 2 ML VIAL IV PRN; -Scopolamine PATCH Remove* 1 NOTE MISC PATCH OFF SCH; +Sodium Citrate/Citric Acid* 15 ML UDC PO ONE; -oxyCODONE/Acetamin 5/325 MG* TAB PO PRN
[2017-09-25] MEDS ORDERED: Clindamycin 900 MG IVPREMIX(* 900 MG/50 ML SDV IV ONE (08:01)
[2017-09-25] MEDS ORDERED: Ciprofloxacin 400MG IVPREMIX(* 400 MG/200 ML BAG ONE (08:02)
[2017-09-25] MEDS ORDERED: Buffered Lidocaine 0.9% SYRIN* 5 ML/SYR SYRINGE ONE (08:02)
[2017-09-25] MEDS ORDERED: Heparin VIAL(*) 5000 UNITS/ML VIAL (FIVE THOUSAND) ONE (08:05)
[2017-09-25] MEDS ORDERED: Sodium Citrate/Citric Acid* 15 ML UDC ONE ×2 (08:05→08:13)
[2017-09-25] MEDS ORDERED: Bupivacaine 0.25% SDV* 30 ML ONE ×2 (09:18→10:22)
[2017-09-25] MEDS ORDERED: Naloxone* 0.4 MG/ML 1 ML VIAL IV PRN ×2 (09:18→10:28)
[2017-09-25] MEDS ORDERED: fentaNYL* 50 MCG/ML 2 ML VIAL (100 MCG VIAL) ONE ×5 (09:27→13:50)
[2017-09-25] MEDS ORDERED: Propofol* 10 MG/ML 20 ML BTL IV PUSH ONE (09:27)
[2017-09-25] MEDS ORDERED: Midazolam* 1 MG/ML 2 ML VIAL (2 MG) ONE (09:27)
[2017-09-25] MEDS ORDERED: Dexamethasone IV* 4 MG/ML 1 ML (4 MG) ONE (09:27)
[2017-09-25] MEDS ORDERED: Lidocaine 2% PF * 5 ML VIAL ONE (09:28)
[2017-09-25] MEDS ORDERED: Rocuronium* 10 MG/ML VIAL ONE (09:29)
[2017-09-25] MEDS ORDERED: Ondansetron INJ* 2 MG/ML VIAL ONE (10:01)
[2017-09-25] MEDS ORDERED: Neostigmine Methylsulfate* 1 MG/ML 10 ML VIAL (1 mg/ml) ONE (11:20)
[2017-09-25] MEDS ORDERED: Glycopyrrolate IV* 0.2 MG/ML 1 ML VIAL ONE (11:20)
[2017-09-25] MEDS ORDERED: HYDROmorphone INJ* 2 MG/ML CARPUJECT SYRINGE IV PRN (12:12)
[2017-09-25] MEDS ORDERED: Acetaminophen ADULT LIQ* 650 MG/20.3 ML UDC PO PRN (12:12)
[2017-09-25] MEDS ORDERED: diPHENhydraMINE IV* 50 MG/ML 1 ml VIAL (BENADRYL) SLOW PUSH PRN (12:12)
[2017-09-25] MEDS ORDERED: HYDROcodone/ACET. 7.5/325 LIQ* 15 ML UDC PO PRN (12:12)
--- NOTE | 2017-09-25 12:12 | OP ---
Operative Report - Blank - Operative Report Date of Operation: 09/25/17 Note: Preop Dx: morbid obesity Postop Dx: same Procedure: laparoscopic sleeve gastrectomy Anesthesia: GET Surgeon: Mohsen Asst: CYRUS Kim; LUIS Martínez Fluids: 1500 ml EBL: 50 ml Drains: none Specimen: portion stomach Findings: dictated
[2017-09-25] MEDS ORDERED: Ondansetron ODT TAB* 4 MG SL PRN (12:24)
[2017-09-25] MEDS: fentaNYL* 50 MCG/ML 2 ML VIAL (100 MCG VIAL) IV PRN ×5 (12:38→13:50)
[2017-09-25] MEDS ORDERED: DiMENhydriNATE IV* 50 MG/ML VIAL ONE (12:45)
[2017-09-25] MEDS ORDERED: Scopolamine 1.5 mg* PATCH ONE (12:46)
[2017-09-25] MEDS: Ondansetron 40 MG VIAL* 2 MG/ML 20 ML VIAL IV PRN ×2 (14:57→21:46)
[2017-09-25] MEDS ORDERED: HYDROmorphone INJ* 2 MG/ML CARPUJECT SYRINGE ONE (15:21)
[2017-09-25] MEDS: HYDROmorphone INJ* 2 MG/ML CARPUJECT SYRINGE IV PRN ×3 (15:23→23:01)
[2017-09-25] MEDS: Heparin VIAL(*) 5000 UNITS/ML VIAL (FIVE THOUSAND) SUBCUT SCH ×2 (15:44→22:56)
[2017-09-25] MEDS ORDERED: Metoclopramide IV* 5 MG/ML 2 ML VIAL ONE (18:02)
[2017-09-25] MEDS ORDERED: Metoclopramide IV* 5 MG/ML 2 ML VIAL IV PRN (18:32)
[2017-09-25] MEDS: Famotidine IV* 10 MG/ML 2 ML (20 mg) IV SLOW PU SCH (20:25)
[2017-09-25] MEDS: Ketorolac INJ* 30 MG/ML 1 ML VIAL IV PUSH PRN (20:28)
[2017-09-26] MEDS: Ketorolac INJ* 30 MG/ML 1 ML VIAL IV PUSH PRN ×2 (02:19→09:18)
[2017-09-26] MEDS: Heparin VIAL(*) 5000 UNITS/ML VIAL (FIVE THOUSAND) SUBCUT SCH ×2 (05:52→14:30)
[2017-09-26] MEDS: HYDROmorphone INJ* 2 MG/ML CARPUJECT SYRINGE IV PRN (05:57)
--- NOTE | 2017-09-26 09:07 | RAD ---
INDICATION: Status post laparoscopic gastric sleeve procedure. COMPARISON: Correlation is made with a prior upper GI series from May 28, 2017. Technique: An upper GI series examination was performed with Gastrografin contrast. Approximately 3.2 minutes of intermittent fluoroscopic guidance were used during the exam. Findings: The esophagus appeared within normal limits. There was hold up of contrast at the gastroesophageal junction with slow passage of contrast into the stomach. There is narrowing of the gastric fundus and body consistent with the patient's gastric sleeve procedure. There is no evidence for intraperitoneal leakage of contrast. The duodenum appeared within normal limits. On the initial truck dock material mover images note is made of a proximally 8 mm calcification which projects over the left kidney most consistent with a renal calculus. IMPRESSION: 1. STATUS POST GASTRIC SLEEVE PROCEDURE, NO EVIDENCE FOR INTRAPERITONEAL LEAK OF CONTRAST. 2. SLOW PASSAGE OF CONTRAST FROM THE DISTAL ESOPHAGUS INTO THE STOMACH. 3. LEFT RENAL CALCULUS. CPT II Codes: G9500
[2017-09-26] MEDS: Famotidine IV* 10 MG/ML 2 ML (20 mg) IV SLOW PU SCH (09:09)
--- NOTE | 2017-09-26 09:11 | PN ---
Progress Note - Progress Note Date of Service: 09/26/17 SOAP: Subjective: Pt seen and examined. Feels well. some nausea. Objective: af vss uo good abdo: soft/ ND/ incisional tenderness no calf tenderness UGI reviewed. No obstr, no leak; rad read pending Assessment: POD1 sleeve gastrectomy Plan: bariatric diet nausea control d/c planning
--- NOTE | 2017-09-26 11:37 | OP ---
CC: [facility]; Alyx MacielHELGA * DATE OF OPERATION: 09/25/17 - ROOM #[id number] DATE OF : 76 SURGEON: Paul Connolly MD. YIELD LOSS INSPECTOR: CYRUS Pride. ANESTHESIA: General anesthesia. PRE-OP DIAGNOSES: Clinically severe obesity, obstructive sleep apnea. POST-OP DIAGNOSES: Clinically severe obesity, obstructive sleep apnea. OPERATIVE PROCEDURE: Laparoscopic sleeve gastrectomy. ESTIMATED BLOOD LOSS: Minimal blood loss. FLUIDS: Crystalloid fluid given 1500 cc. DRAINS: None. SPECIMENS: Portion of the stomach. DESCRIPTION OF PROCEDURE: The patient was identified in the preoperative area, marked. Case discussed with her again and consent signed. She was marked, brought to the operating room, placed on the operating table in the supine position. Preoperative antibiotics were given. Sequential devices were placed on bilateral lower extremities. General anesthesia was induced. The patient's abdomen was prepped and draped in the standard surgical fashion. A time-out was performed. A subcostal incision was made at the left upper quadrant incision. This was deepened down into the fascia, which was elevated. A Veress needle was inserted into the abdominal cavity, which was then allowed to insufflate to a pressure of 15 mmHg. The patient tolerated the insufflation well. A 12-mm trocar was inserted midway between the xiphoid and the umbilicus. The laparoscope was inserted through this and there was no evidence of injury from the Veress needle or from the trocar insertion. Veress needle was removed and a 5 mm trocar was inserted at the site. There were adhesions to the left lateral abdomen, these were taken down with LigaSure device and we were able to place a 5-mm trocar laterally. I then placed a 12-mm trocar in the right upper quadrant. The patient was placed in a reverse Trendelenburg and Braxton retractor was inserted at the subxiphoid incision. The liver was retracted anteriorly onto the right. This exposed a small gastroesophageal fat pad with no evidence of hiatal hernia. Fat pad was grasped and retracted towards the right lower quadrant. Blunt dissection was carried out to expose the left johana. Next, the pylorus was identified. Approximately 5 cm proximal to the pylorus, a retrogastric tunnel was made. This did prove somewhat difficult, so we ended up extending this to about 8 cm proximal to the pylorus where we can get into a freer space. We took the vasculature of the greater curve, right up to the angle of His and then went back and completed the distal portion of the greater curvature to the 0.5 cm from the pylorus. Tip was stereotyped in a similar fashion, so the stomach could be entirely rotated along its axis. Next, a sleeve stomach was created using 60-mm purple HALINA stapling device with reinforcements and starting distally extending towards the incisura, we fired this after inserting the 40-Mozambican bougie into the distal stomach. The stomach sleeve was completed with additional firing loads staying tied the bougie. The transected stomach was then placed in an endoscopic retrieval bag. Bougie was removed. Braxton retractor was removed. Hemostasis was excellent. We then removed the stomach in an endoscopic retrieval bag through the right upper quadrant port site which was then reapproximated at the fascial layer with a Weck device using a 0 Polysorb suture. The abdomen was allowed to collapse, trocars were removed under direct vision and all skin incisions were reapproximated with 4-0 Monocryl subcuticular sutures followed by sterile dressing. The patient tolerated the procedure well, was woken up in the OR, and transferred to the PACU in stable condition. [id number]/[facility] #: [id number] LEEANN
[2017-09-26 12:01] VITALS: BP 111/62
[2017-09-26] MEDS ORDERED: D5W 1/2 NS KCl 20 Meq 1000 ML* 1,000 ML IV SCH (12:21)
--- NOTE | 2017-09-27 06:09 | DS ---
DISCHARGE SUMMARY: DATE OF ADMISSION: 09/25/17. DATE OF DISCHARGE: , 09/26/17. ATTENDING SURGEON: Dr. Paul Connolly.* (DICTATED BY MAURICE COBB NP) HOSPITAL COURSE: Please refer to admission history and physical for details. The patient was taken to the operating room on 09/25/17 and underwent laparoscopic sleeve gastrectomy. She has had an uneventful postoperative course , and as of the afternoon of discharge, was tolerating 120 cc of clear liquids per hour, her pain was well controlled, she was urinating in large quantities, and ambulating in the forbes. PHYSICAL EXAMINATION: Vital Signs: Temperature 98.4, pulse 63, respiratory rate 18, O2 saturation on room air 97%, blood pressure 110/62. General: Well nourished and in no acute distress, walking in the halls. Lungs: Breath sounds bilaterally clear and equal. Heart: Regular rate and rhythm. No murmurs or rubs appreciated. Abdomen: Laparoscopic incision sites intact with Steri-Strips. No active bleeding or drainage; bowel sounds are present and the abdomen is soft. IMPRESSION: Status post laparoscopic sleeve gastrectomy, doing very well. PLAN: Discharge home today. She will use liquid hydrocodone or adult-strength liquid Tylenol as needed for postoperative discomfort; a prescription for Zofran oral dissolving tablet was provided for nausea; she will follow the prescribed bariatric diet and has an appointment at [facility] on 10/01/17. Her discharge instructions were reviewed. All of her questions were answered. MAURICE COBB NP [id number]/[facility] #: [id number] LEEANN
== END 2017-09-26 19:36 | disposition home or self-care (01) | DRG 403 ==
LOC: AA 07:50 → SSU 14:49
PROVIDERS: ADMIT Surgery; ATTEND Surgery
PROC: 0DB64Z3 Excision of Stomach, Percutaneous Endoscopic Approach, Vertical (ICD-10-PCS; principal; 2017-09-25 09:15)
DX: E66.01 Morbid (severe) obesity due to excess calories (principal); F32.9 Major depressive disorder, single episode, unspecified; G47.33 Obstructive sleep apnea (adult) (pediatric); R11.0 Nausea; G43.909 Migraine, unspecified, not intractable, without status migrainosus; Z88.1 Allergy status to other antibiotic agents; Z88.6 Allergy status to analgesic agent; Z91.030 Bee allergy status; Z91.048 Other nonmedicinal substance allergy status; Z98.51 Tubal ligation status; Z90.711 Acquired absence of uterus with remaining cervical stump; Z82.49 Family history of ischemic heart disease and other diseases of the circulatory system; Z80.9 Family history of malignant neoplasm, unspecified; Z83.49 Family history of other endocrine, nutritional and metabolic diseases; Z68.37 Body mass index [BMI] 37.0-37.9, adult; Z87.891 Personal history of nicotine dependence; Z72.89 Other problems related to lifestyle
CPT/HCPCS: 43775; 74246; 88307; A9270-GY; C1776; J0744; J1100; J1170; J1240; J1644; J1885; J2250; J2405; J2704; J2710; J2765; J3010

== ENCOUNTER 2019-03-10 13:20 | Emergency (ER) | payer BC, OTHER ==
[2019-03-10] MEDS ORDERED: diPHENhydraMINE PO* 25 MG PO ONE (13:36)
[2019-03-10] MEDS ORDERED: EPINEPHRINE 1 MG/ML 1 ML VIAL IM ONE (13:36)
[2019-03-10] MEDS ORDERED: predniSONE TAB* 20 MG PO ONE (13:36)
--- NOTE | 2019-03-10 13:39 | ED ---
Bite Injury/Animal - HPI Summary HPI Summary: 38 year old female presents to [facility] for a bee sting on the right fifth finger, sustained in [place] 2 days ago. Patient reports rash, itching, and tongue swelling immediately after the sting. The symptoms were relieved after a Benadryl but returned yesterday, with exacerbated tongue swelling. She realized that the bee stinger was still lodged in her skin yesterday, and removed it. Patient has a history of anaphylaxis, but no history of reactions to bee stings , only wasp stings. - History of Current Complaint Chief Complaint: EDAllergicReaction Stated Complaint: BEE STING REACTION PER PT Time Seen by Provider: 03/10/19 13:28 Hx Obtained From: Patient Hx Last Menstrual Period: 05/28/16 Onset of Injury: Happened days ago, Still Present Type of Bite: Wild Animal - Bee sting Hx of Bite: Unprovoked Has Animal Been Immunized?: No Severity Initially: Mild Severity Currently: Mild Pain Intensity: 2 Pain Scale Used: 0-10 Numeric - Allergies/Home Medications Allergies/Adverse Reactions: Allergies Allergy/AdvReac Type Severity Reaction Status Date / Time ceftriaxone [From Rocephin] Allergy LIP AND Verified 09/25/17 08:26 TONGUE SWELLING codeine Allergy Unknown Verified 09/25/17 08:26 Reaction Details ketoprofen Allergy LIP AND Verified 09/25/17 08:26 TONGUE SWELLING red dye Allergy LIP AND Verified 09/25/17 08:26 TONGUE SWELLING BEE Allergy ANAPHYLACTI Uncoded 09/25/17 08:26 C brand name advil Allergy lip and Uncoded 09/25/17 08:26 tongue swelling Home Medications: Home Medications Omeprazole CAP (NF) [Prilosec CAP* 20 MG] 20 mg PO BID 03/10/19 [History Confirmed 03/10/19] Opurity Bariatric Vitamins 1 cap PO DAILY 03/10/19 [History Confirmed 03/10/19] PMH/Surg Hx/FS Hx/Imm Hx Endocrine/Hematology History: Denies: Hx Diabetes, Hx Thyroid Disease Cardiovascular History: Denies: Hx Congestive Heart Failure, Hx Hypertension Respiratory History: Reports: Hx Sleep Apnea Denies: Hx Asthma, Hx Chronic Obstructive Pulmonary Disease (COPD) GI History: Denies: Hx Ulcer History: Denies: Hx Renal Disease Sensory History: Denies: Hx Contacts or Glasses, Hx Hearing Aid Opthamlomology History: Denies: Hx Contacts or Glasses Neurological History: Reports: Hx Headaches, Hx Migraine - 3-4 TIMES PER YEAR - Surgical History Surgery Procedure, Year, and Place: appendix; tubal ligation; tonsils, [facility] Hx Anesthesia Reactions: No Infectious Disease History: No Infectious Disease History: Denies: Hx Hepatitis, Hx Human Immunodeficiency Virus (HIV), History Other Infectious Disease, Traveled Outside the [place] in Last 30 Days - Family History Known Family History: Positive: Other - Hx hemorrhage mother; Hx hysterectomy for medical reasons mother - Social History Alcohol Use: Rare Alcohol Amount: SOCIALLY Hx Substance Use: No Substance Use Type: Reports: None Hx Tobacco Use: Yes Smoking Status (MU): Light Every Day Tobacco Smoker Type: Cigarettes Amount Used/How Often: 1 pack per week Have You Smoked in the Last Year: No Review of Systems Negative: Fever Positive: Other - swollen tongue Positive: Rash All Other Systems Reviewed And Are Negative: Yes Physical Exam - Summary Physical Exam Summary: Appearance: Well-appearing, Well-nourished, lying in bed comfortably Skin: Warm, dry, no obvious rash Eyes: sclera anicteric, no conjunctival pallor ENT: mucous membranes moist, pharynx appears normal. Mild lingual edema. Voice mildly dysarthric. Neck: Supple, nontender Respiratory: Clear to auscultation, no signs of respiratory distress Cardiovascular: Normal S1, S2. No murmurs. Normal distal pulses in tibial and radial bilaterally. Abdomen: Soft, nontender, normal active bowel sounds present Musculoskeletal: Normal, Strength/ROM Intact Neurological: A&Ox3, awake and alert, mentation is normal, speech is fluent and appropriate Psychiatric: affect is normal, does not appear anxious or depressed Triage Information Reviewed: Yes Vital Signs On Initial Exam: Initial Vitals Temp Pulse Resp BP Pulse Ox 97.1 F 81 18 120/99 99 03/10/19 13:21 03/10/19 13:21 03/10/19 13:21 03/10/19 13:21 03/10/19 13:21 Vital Signs Reviewed: Yes Procedures - Sedation Patient Received Moderate/Deep Sedation with Procedure: No Diagnostics - Vital Signs Vital Signs Temp Pulse Resp BP Pulse Ox 03/10/19 13:21 97.1 F 81 18 120/99 99 - Laboratory Lab Statement: Any lab studies that have been ordered have been reviewed, and results considered in the medical decision making process. Re-Evaluation - Re-Evaluation First Eval Re-Evaluation Time: 14:30 Change: Unchanged Comment: Patient reports that her anaphlactioid symptoms improved, but she also reports a new headache that occurred after her epinephrine shot. Second Eval Re-Evaluation Time: 15:40 Change: Improved Comment: Re-eval at 15:40: Patient is feeling better. She agrees with plan to discharge. Bite Injury Course/Dx - Course Course Of Treatment: 38 year old female presents to [facility] for a bee sting on the right fifth finger, sustained in [place] 2 days ago. Patient reports rash , itching, and tongue swelling immediately after the sting. The symptoms were relieved after a Benadryl but returned yesterday, with exacerbated tongue swelling. She realized that the bee stinger was still lodged in her skin yesterday, and removed it. Patient has a history of anaphylaxis, but no history of reactions to bee stings, only wasp stings. Physical exam reveals mild lingual edema and mild dysarthria. Lungs are clear to auscultation and no pharyngeal edema. All other systems reviewed and normal. In the ED course the patient was given Benadryl, prednisone and IM epinephrine. Re-eval at 14:30: Patient reports that her anaphlactioid symptoms improved, but she also reports a new headache that occurred after her epinephrine shot.\. Diagnosis of allergic reaction due to bee sting. Re-eval at 15:40: Patient is feeling better. She agrees with plan to discharge. Patient is discharged home. - Diagnoses Provider Diagnosis: Bee sting reaction Discharge ED - Sign-Out/Discharge Documenting (check all that apply): Patient Departure - Discharge Plan Condition: Improved Disposition: HOME Prescriptions: predniSONE TAB* [Deltasone 20 MG TAB*] 40 mg PO DAILY 5 Days #10 tab Patient Education Materials: Insect Bite or Sting (ED), General Allergic Reaction (ED) Referrals: Alyx Maciel NP [Primary Care Provider] - - Billing Disposition and Condition Condition: IMPROVED Disposition: Home - Attestation Statements Document Initiated by Scribe: Yes Documenting Scribe: Esau Em Provider For Whom Scribe is Documenting (Include Credential): Dr. Baltazar Landaverde Scribe Attestation: I, Esau Em, scribed for Dr. Baltazar Landaverde on 03/12/19 at 1844. Scribe Documentation Reviewed: Yes Provider Attestation: The documentation as recorded by the scribe, Esau Em accurately reflects the service I personally performed and the decisions made by me, Dr. Baltazar Landaverde Status of Scribkylee Document: Viewed
[2019-03-10] MEDS ORDERED: Prochlorperazine TAB* 10 MG PO ONE (14:29)
[2019-03-10] MEDS ORDERED: HYDROcodone/ACETAMIN 5-325 MG* 1 TAB PO ONE (14:30)
[2019-03-10 16:23] VITALS: BP 107/71
== END 2019-03-10 16:24 | disposition home or self-care (01) ==
LOC: ED 13:20
DX: T63.441A Toxic effect of venom of bees, accidental (unintentional), initial encounter (principal); F17.210 Nicotine dependence, cigarettes, uncomplicated; Z88.1 Allergy status to other antibiotic agents; Z88.5 Allergy status to narcotic agent; Z91.09 Other allergy status, other than to drugs and biological substances; Z79.899 Other long term (current) drug therapy; X58.XXXA Exposure to other specified factors, initial encounter
CPT/HCPCS: 96372; 99282; A9270-GY; J7512; Q0164